=== PATIENT | female | born 1990 | race Caucasian/White ===

== ENCOUNTER 2016-11-04 21:23 | Emergency (ER) | payer MEDICAID ==
[~2016-11-04] VITALS: Ht 157.5 cm; Wt 113.9 kg
[~2016-11-04 21:23] MED LIST: BUSP10TA PO; CITA10TA4 PO; ETONOGESTREL; HYDR-3240 PO; SERT100T PO
[2016-11-04 22:26] LABS: HCG UR OBC PASS
[2016-11-04 22:31] LABS: ASPARTATE AMINO TRANSFERASE 22 U/L (15-37); BLOOD UREA NITROGEN 12 mg/dL (7-18)
[2016-11-04] MEDS ORDERED: OXYcodone/APAP 5/325MG TABLET ONE (22:58)
[2016-11-04] MEDS ORDERED: OXYcodone/APAP 5/325MG TABLET PO ONE (23:00)
[2016-11-05 00:54] VITALS: BP 116/60
== END 2016-11-05 00:55 | disposition home or self-care (01) ==
LOC: ED 23:37
DX: K76.0 Fatty (change of) liver, not elsewhere classified (principal); Z90.49 Acquired absence of other specified parts of digestive tract
CPT/HCPCS: 36415; 76700; 80053; 81003; 81025; 83690; 85025

== ENCOUNTER 2016-12-28 22:53 | Emergency (ER) | payer MEDICAID ==
[~2016-12-28] VITALS: Ht 157.5 cm; Wt 115.1 kg
[2016-12-28 23:04] VITALS: BP 115/81
== END 2016-12-28 23:58 | disposition home or self-care (01) ==
LOC: ED 23:22
DX: K02.9 Dental caries, unspecified (principal)
CPT/HCPCS: 99283

== ENCOUNTER 2017-05-17 12:06 | Emergency (ER) | payer MEDICAID, OTHER ==
[~2017-05-17] VITALS: Ht 157.5 cm; Wt 120.0 kg
[2017-05-17 12:13] VITALS: BP 140/80
[2017-05-17] MEDS ORDERED: CARBAMIDE PEROXIDE EAR DROPS 6.5%, 15ML ONE (12:47)
== END 2017-05-17 13:36 | disposition home or self-care (01) ==
LOC: ED 13:05
DX: H61.21 Impacted cerumen, right ear (principal)
CPT/HCPCS: 69209; 69210